=== PATIENT | female | born 1980 | race Caucasian/White ===

== ENCOUNTER 2017-02-28 20:56 | Emergency (ER) | payer MEDICARE | END 2017-03-01 00:12 | disposition home or self-care (01) | LOC: D.ER 20:56 | DX: M54.5 Low back pain (principal) ==

== ENCOUNTER 2017-03-22 06:27 | Day surgery (SDC) | payer MEDICARE ==
[2017-03-20 14:18] LABS: BASOPHILS 0.4 % (0-2); EOSINOPHILS 8.9 % (0-7); HEMATOCRIT 43.5 % (36.0-48.0); HEMOGLOBIN 14.6 g/dL (12-16); IMMATURE GRANULOCYTES 0.2 % (0-5); LYMPHOCYTES 36.3 % (15-50); MCH 32.2 pg (26.0-34.0); MCHC 33.6 g/dL (31.0-37.0); MCV 95.8 fL (80.0-100.0); MEAN PLATELET VOLUME 9.2 fL (7.4-10.4); MONOCYTES 6.4 % (2-11); NEUTROPHILS 47.8 % (40-80); PLATELET COUNT 430 10x3/uL (130-400); RBC 4.54 10x6/uL (4.00-5.40); WBC 12.6 10x3/uL (4.8-10.8)
[2017-03-20 14:28] LABS: INR 1.01 (0.85-1.17); PROTIME 13.2 SECONDS (11.6-15.0)
[2017-03-20 14:34] LABS: CALC OSMOLALITY 271 mosm/kg (275-300); CALCIUM 8.8 mg/dL (8.5-10.1); CARBON DIOXIDE 29.9 mmol/L (21.0-32.0); CHLORIDE - SERUM 101 mmol/L (98-107); CREATININE - SERUM 0.7 mg/dL (0.6-1.3); GLUCOSE 96 mg/dL (74-106); POTASSIUM - SERUM 3.9 mmol/L (3.5-5.1); SODIUM 137 mmol/L (136-145); UREA NITROGEN 6 mg/dL (7-18); eGFR NON AFRICAN AMERICAN > 90 mL/min (90-120)
[2017-03-20 14:38] LABS: APPEARANCE HAZY (CLEAR); BILIRUBIN NEGATIVE (NEGATIVE); COLOR YELLOW (YELLOW); GLUCOSE NEGATIVE (NEGATIVE); KETONE NEGATIVE (NEGATIVE); LEUKOCYTE ESTERASE TRACE (NEGATIVE); NITRITE NEGATIVE (NEGATIVE); PROTEIN NEGATIVE (NEGATIVE); SPECIFIC GRAVITY 1.015 (1.005-1.020); UROBILINOGEN NORMAL (NORMAL)
[2017-03-20 14:39] LABS: BACTERIA MANY /hpf (NONE SEEN); EPITHELIAL CELLS 0-5 /hpf (0-5); RED CELLS - URINE 0-5 /hpf (0-5); WHITE CELLS - URINE OCC /hpf (0-5)
[2017-03-20 14:40] LABS: AMORPHOUS SEDIMENT <1+ /lpf (NONE SEEN); MUCUS <1+ /lpf (NONE SEEN)
[2017-03-22] VITALS (10 sets, daily range): BP systolic 103–132; BP diastolic 54–75; Ht 157.5 cm; Wt 63.6 kg
[~2017-03-22] VITALS: Ht 157.5 cm; Wt 63.6 kg
--- NOTE | ~2017-03-22 | OP ---
PATIENT NAME: SERENA SAMUELS MEDICAL RECORD: [id number] :80 LOCATION:[facility] D.1221 ADMISSION DATE:03/22/17 SURGEON: CHARLETTE HUFF MD DATE OF OPERATION: 03/22/2017 PREOPERATIVE DIAGNOSIS: Left S1 radiculopathy. POSTOPERATIVE DIAGNOSIS: Left S1 radiculopathy. PROCEDURES PERFORMED: 1. Left L5, S1 hemilaminectomy and medial facetectomy for left L5-S1 discectomy and nerve root decompression. 2. Use of intraoperative microscope with microdissection technique. FINDINGS: ____; large disc fragment removed with nerve well decompressed at the conclusion of procedure. COMPLICATIONS: None. SPECIMENS: None. ESTIMATED BLOOD LOSS: 30 cc. HISTORY OF PRESENT ILLNESS: Ms. Serena Samuels is a pleasant 36-year-old female, who presented with a progressive history of left S1 radiculopathy. She is neurologically intact on exam and imaging is consistent with a severe canal stenosis on the left side at L5-S1 due to bulging disc with a nerve root compression. An extensive discussion with her regarding her imaging presentation and the risks, benefits and options of continued conservative therapy versus operative intervention in the form of a hemilaminotomy and discectomy. She chose to go forth with the operative intervention and the risk and benefits were explained in detail preoperatively and she freely agreed to go forward. PROCEDURE IN DETAIL: Ms. Samuels was identified by anesthesia team and transported to the operative theater where general endotracheal anesthesia commenced and all appropriate lines and tubes were placed. She was gently transferred over in the prone position. Arms were placed in superman position. Chest was placed on gel rolls. Pressure points were padded and the eyes were accounted for and protected by anesthesia team. The lumbar region was prepped and draped in the usual sterile fashion. A timeout was performed and agreed to by those present. The patient received IV antibiotics prior to skin incision. Using AP and lateral fluoroscopy, a midline incision overlying the left L5-S1 disc space was identified. Please note that she did have a transitional ____ on MRI so care was taken to ensure the patient is being operated on the appropriate level. Lidocaine was infiltrated in the planned incision and a 10-blade was used to carry level incision down to the underlying subcutaneous fat. Using combination of Bovie electrocautery and blunt dissection, a standard midline approach was performed and the left side of the L5 hemilamina was exposed. Please note that given the transitional anatomy and the relative difficulty identifying the appropriate level, a 2-level hemilaminotomy was performed. The ligamentum flavum was resected at both levels what ultimately ended up being the bilateral L4 nerve root was identified and decompressed. There was no discectomy performed at this level as there was no appreciable disc bulge identified under direct palpation. Subsequently, the what came to be the L5 OPERATIVE REPORT [id number] SERENA SAMUELS lamina nonetheless was drilled away with combination of high-speed matchstick drill and Kerrison rongeurs. The ligamentum flavum dissection occurred. The underlying traversing nerve root was identified and a significant size bulging disc was palpated and identified. The exiting nerve root was retracted medially. This was coagulated with bipolar electrocautery. A cruciate incision with a 15 blade was made and discectomy was carried out with combination of pituitary rongeurs, down pushing curettes and dissecting probes. Please note that a sizable disc removed this level. Discectomy was carried on until all further available disc fragments were able to be removed and the annulotomy was closed with a bipolar ____. The bony foraminotomy was carried out on both the exiting and the traversing nerve roots with Kerrison rongeurs. Copious amount of irrigation was used and small amount of Surgiflo hemostatic matrix was instilled into the epidural space to control small amount of hemorrhage. This was rinsed away and no further hemorrhage was appreciated. An approximately quarter gram of vancomycin powder was sprinkled into the subfascial space and the fascia was closed with interrupted 3-0 Vicryl sutures. The skin was closed with inverted interrupted 3-0 Vicryl sutures and the skin stapled shut. After closure of the fascial layer, the microscope was taken out of field. It had been brought on the field prior to the hemilaminotomy and remained until the end of the closure. It was also noted that approximately another quarater of gram vancomycin powder was sprinkled into the suprafascial space prior to closure of the subdermal layer. Again, the skin was closed with john. The incision was cleaned and dressed with a sterile dressing and an antiobiotic ointment and bandage was applied. She tolerated the procedure well without any apparent complications. There was no durotomy. I spoke to the postoperatively ____ procedure. TRANSINT:[id number] Voice Confirmation ID: [id number] DOCUMENT ID: [id number] CHARLETTE HUFF MD CC: [id number] DICTATION DATE: 03/22/171033 [employer] SALES REPRESENTATIVE: 03/22/171915 ADM IN [facility] [address] [place] [address]
[~2017-03-22 06:27] MED LIST: HYDROCODON-ACE1 EAC7 PO
[2017-03-22 06:48] LABS: HCG URINE NEGATIVE (NEGATIVE)
--- NOTE | 2017-03-22 10:17 | HP ---
PATIENT: KRYSTA SAMUELS MEDICAL RECORD: [id number] ACCOUNT: [id number] LOCATION:[place] : 80 ADMISSION DATE: 03/22/17 HISTORY AND PHYSICAL EXAMINATION CHIEF COMPLAINT: Back pain. HISTORY OF PRESENT ILLNESS: This is a pleasant female who presented to our office with complaints of back pain. She has had it for 8-9 years. It radiates down into her left leg. Sitting makes it better. Walking makes it worse. She has no previous history of low back symptoms. She has gotten no relief from meds. It is notable that SHE HAS A TERRIBLE REACTION TO SULFA. SHE ALSO WAS ALLERGIC TO CODEINE AND PHENERGAN. PAST MEDICAL HISTORY: Significant for defects to her arms and legs. She has history of cholecystectomy. She has had some type of cranial surgery and a reconstructive surgery on her vagina. FAMILY HISTORY: Positive for alcoholism. Her mother is still living. SOCIAL HISTORY: She is . CURRENT MEDICATIONS: Hydrocodone only. REVIEW OF SYSTEMS: She denies any recent chest pain, shortness of breath or weight changes. PHYSICAL EXAMINATION: HEENT: She is normocephalic. Pupils are equal, reactive to light. CHEST: Clear bilaterally to auscultation. HEART: S1 and S2. ABDOMEN: Soft, bowel sounds present. EXTREMITIES: She has pain in left leg with standing. No pain with internal or external rotation of hip. IMPRESSION: Left L5-S1 herniated nucleus pulposus. PLAN: Left L5-S1 discectomy. The risk and benefits of surgery have been explained to her in detail. Risks include bleeding, failure to relieve symptoms, problems with anesthesia and . Time was allowed for questions and questions were answered. The patient wishes to proceed with surgery. TRANSINT:[id number] Voice Confirmation ID: [id number] DOCUMENT ID: [id number] Dictated By: ROSA VERNON I have interviewed/examined the above patient and agree with these documented findings. HISTORY AND PHYSICAL [id number] SAMUELSKRYSTA CHARLETTE KIRKPATRICK MD at 1017 at 0938 CC: [id number] DICTATION DATE: 03/20/17 171 BUYER LIAISON: 03/20/17 1946 [facility] [address] [facility] [place] [address]
[2017-03-23 00:20] VITALS: BP 117/67
[2017-03-23 04:15] VITALS: BP 106/51
[2017-03-23 07:30] VITALS: BP 118/75
[2017-03-23] MEDS ORDERED: HYDROCODON-ACE1 EAC7 PO (09:48)
== END 2017-03-23 10:30 | disposition home or self-care (01) ==
LOC: D.OPS 06:27 → D.PAN 10:30 → D.OPS 10:30 → D.WS 10:49 → D.OPS 12:01 → D.WS 12:02 → D.OPS 03-23 10:30 → D.WS 03-23 10:30
PROVIDERS: Neurological Surgery
DX: M51.17 Intervertebral disc disorders with radiculopathy, lumbosacral region (principal); Q89.9 Congenital malformation, unspecified; Z79.891 Long term (current) use of opiate analgesic; Z88.5 Allergy status to narcotic agent; Z88.2 Allergy status to sulfonamides; Z88.8 Allergy status to other drugs, medicaments and biological substances